=== PATIENT | male | born 1985 | race Caucasian/White ===

== ENCOUNTER 2016-10-01 00:57 | Emergency (ER) | payer OTHER ==
[~2016-10-01] VITALS: Ht 190.5 cm; Wt 102.0 kg
[2016-10-01 00:58] VITALS: TEMP 36.5; Ht 190.5 cm; Wt 102.0 kg
--- NOTE | 2016-10-01 01:19 | EMERGENCY ROOM VISIT NOTE ---
History Report prepared by Lashanda: Ce Orourke Under the Supervision of: Dr. Leda Woo D.O. First contact with patient: 01:00 Chief Complaint: ALCOHOL OVERDOSE Stated Complaint: ALCOHOL OVERDOSE History of Present Illness The patient is a 31 year old male who presents to the Emergency Room with complaints of an episode of alcohol intoxication beginning just [employer]. Per nursing staff the patient was found at a bus stop and was incontinent. The patient states that he had too much to drink tonight and was drinking beer and liquor. He reports that he came to visit for the weekend with his friend and is an alumni of [employer]. The patient denies any vomiting, fall, and trauma. Source of History: patient Onset: just [employer] Position: other (global) Quality: other (intoxication) Timing: other (episode) Associated Symptoms: No vomiting Note: Pt complains of incontinence. The patient denies any fall and trauma. Review of Systems See HPI for pertinent positives & negatives. A total of 10 systems reviewed and were otherwise negative. Past Medical & Surgical Medical Problems: (1) No Known Active Medical Problems Family History No pertinent family history stated. Social History Alcohol Use: occasionally Occupation Status: employed Current/Historical Medications No Active Prescriptions or Reported Meds Allergies Coded Allergies: No Known Allergies (Unverified , 10/01/16) Physical Exam Vital Signs Date Time Temp Pulse Resp B/P Pulse Ox O2 Delivery O2 Flow Rate FiO2 10/01/16 06:07 77 16 109/69 98 10/01/16 05:10 73 10/01/16 04:11 79 16 101/66 98 Room Air 10/01/16 01:07 76 10/01/16 00:58 36.5 77 16 123/78 Room Air Physical Exam HEENT: Head - normocephalic and atraumatic Pupils are equal, round, 4mm and sluggishly reactive to light. Extraocular eye muscles are intact, and sclera are anicteric. Nose - moist nasal mucosa without discharge. Mouth - moist buccal mucosa. Oropharynx is nonerythematous and there is no tonsillar exudate or edema noted. Neck: Supple; no JVD, nuchal rigidity, cervical lymphadenopathy. Heart: Regular rate and rhythm. There is a normal S1 and S2 with no murmurs, clicks, or gallops appreciated. Lungs: Clear to auscultation bilaterally with no wheezes, rales, or rhonchi. Abdomen: Soft, completely nontender, nondistended, with good bowel sounds. There are no palpable pulsatile masses or hepatosplenomegaly. There is no guarding, rigidity, or rebound noted. Extremities: No evidence of cyanosis, clubbing, or edema. There are easily palpable peripheral pulses. Skin: warm and dry with good turgor and no rashes. Medical Decision & Procedures Laboratory Results 10/01/16 01:05 Test 10/01/16 01:05 Anion Gap 9.0 mmol/L (3-11) Est Creatinine Clear Calc Drug Dose 128.2 ml/min Estimated GFR () 104.6 Estimated GFR (Non- 90.2 BUN/Creatinine Ratio 10.2 (10-20) Calcium Level 8.4 mg/dl (8.5-10.1) Ethyl Alcohol mg/dL 274.0 mg/dl (0-3) Laboratory results per my review. ED Course 0100: Past medical records reviewed. The patient was evaluated in room B3B. A complete history and physical exam was performed. Labs were drawn as above. The patient was placed in the prone position to avoid aspiration. He was observed on the athletic monitor and pulse oximeter. 0227: I reevaluated the patient and he is resting. 0432: I reevaluated the patient. He is sleeping and hemodynamically stable. 0605: The patient has a ride coming to get him. 0621: Upon reevaluation, the patient is doing well. I discussed findings and results with him. He verbalized agreement of the treatment plan. The patient was discharged home. Medical Decision The patient is a 31 year old male who presents to the ED with alcohol intoxication. Differential diagnosis includes alcohol overdose, drug intoxication, hypoglycemia, head injury. LABS: Alcohol 274 Normal Renal Function Glucose 109 this is a 31-year-old male patient who is a [employer] Alumni. Unfortunately, the patient drank too much alcohol this evening and became incontinent at the bus stop. The patient was transported here for evaluation. It was determined that his blood alcohol level was significantly elevated. He was allowed to sober up here in the emergency department. Impression Primary Impression: Alcohol overdose Additional Impression: Urinary incontinence Scribe Attestation The scribe's documentation has been prepared under my direction and personally reviewed by me in its entirety. I confirm that the note above accurately reflects all work, treatment, procedures, and medical decision making performed by me. Departure Information Dispostion Home / Self-Care Prescriptions No Active Prescriptions or Reported Meds Referrals No Doctor, Assigned (PCP) Forms HOME CARE DOCUMENTATION FORM, IMPORTANT VISIT INFORMATION Patient Instructions ED Overdose Alcohol, My [facility] Additional Instructions Rest. Avoid such excessive alcohol use in the future Take plenty of clear liquids today. Use tylenol for headaches Problem Qualifiers
[2016-10-01 01:42] LABS: BUN/CREATININE RATIO 10.2 (10-20); CALCIUM 8.4 mg/dl (8.5-10.1); CREATININE 1.1 mg/dl (0.60-1.40); POTASSIUM 3.8 mmol/L (3.5-5.1)
[2016-10-01 06:07] VITALS: BP 109/69; PULSE 77; O2SAT 98
== END 2016-10-01 06:17 | disposition home or self-care (01) ==
LOC: EDBD 00:57 → C.EDB 01:00
DX: T51.91XA Toxic effect of unspecified alcohol, accidental (unintentional), initial encounter (principal); R32 Unspecified urinary incontinence